=== PATIENT | female | born 1965 ===

== ENCOUNTER 2021-05-30 11:45 | Inpatient (IN) | payer OTHER ==
[~2021-05-30] VITALS: Ht 167.6 cm; Wt 64.4 kg
[2021-05-30] MEDS ORDERED: PENTOXIFYLLINE PO (14:06)
[2021-05-30] MEDS ORDERED: ZESTORETIC 20-1 EAC1 PO (14:07)
[2021-05-30] MEDS ORDERED: CHILDREN'S ASPI81 MG PO (14:07)
[2021-05-30] MEDS ORDERED: BUPRO PO (14:08)
[2021-05-30] MEDS ORDERED: METFORMIN PO (14:08)
[2021-05-30] MEDS ORDERED: AMBIEN10 MG PO (14:09)
[2021-05-30] MEDS ORDERED: ATIVAN1 M1 PO (14:09)
[2021-05-30] MEDS ORDERED: ANAGRELIDE HCL1 MG PO (14:09)
[2021-06-04] MEDS ORDERED: PENTOXIFYLLINE400 MG PO (09:34)
[2021-06-04] MEDS ORDERED: METFORMIN HCL850 M1 PO (09:34)
[2021-06-04] MEDS ORDERED: BUPROPION XL150 MG PO (09:35)
[2021-06-06] MEDS ORDERED: ELIQUIS2.5 MG PO (16:49)
[2021-06-06] MEDS ORDERED: DUI500 PO (16:49)
[2021-06-06] MEDS ORDERED: PERCOCET 5-3251 EACH PO (16:49)
[2021-06-07] MEDS ORDERED: ELIQUIS2.5 MG PO (08:13)
[2021-06-07] MEDS ORDERED: DUI500 PO (08:13)
[2021-06-07] MEDS ORDERED: PERCOCET 5-3251 EACH PO (08:13)
== END 2021-06-07 13:28 | DRG 470 ==
LOC: SURH 06-04 06:00 → O/R 06-04 06:00 → SURH 06-04 11:00
PROVIDERS: ADMIT Orthopaedic Surgery; ATTEND Orthopaedic Surgery
PROC: 0SRD0J9 Replacement of Left Knee Joint with Synthetic Substitute, Cemented, Open Approach (ICD-10-PCS; principal; 2021-06-04 11:00)
DX: M17.12 Unilateral primary osteoarthritis, left knee (principal); D62 Acute posthemorrhagic anemia; I10 Essential (primary) hypertension; E11.9 Type 2 diabetes mellitus without complications; Z20.822 Contact with and (suspected) exposure to COVID-19; D47.3 Essential (hemorrhagic) thrombocythemia

== ENCOUNTER 2025-06-13 09:23 | Outpatient (CLI) | payer OTHER ==
[~2025-06-13 09:23] MED LIST: AMBIEN10 MG PO; ANAGRELIDE HCL1 MG PO; ATIVAN1 M1 PO; BUPRO PO; BUPROPION XL150 MG PO; CHILDREN'S ASPI81 MG PO; DUI500 PO; ELIQUIS2.5 MG PO; METFORMIN HCL850 M1 PO; METFORMIN PO; PENTOXIFYLLINE PO; PENTOXIFYLLINE400 MG PO; PERCOCET 5-3251 EACH PO; ZESTORETIC 20-1 EAC1 PO
== END 2025-06-13 09:29 | disposition home or self-care (01) ==
LOC: MRI 09:23
DX: M25.461 Effusion, right knee (principal); M71.21 Synovial cyst of popliteal space [Baker], right knee; M17.11 Unilateral primary osteoarthritis, right knee
CPT/HCPCS: 73721